=== PATIENT | male | born 1955 | race Two or more races ===

== ENCOUNTER 2025-01-04 16:08 | Emergency (ER) | payer MEDICARE, MEDICAID, SELFPAY ==
[2025-01-04 16:09] VITALS: BMI 33.6
[2025-01-04 16:43] VITALS: BP 149/58; PULSE 62; RESP 18; TEMP 36.9; O2SAT 99
--- NOTE | 2025-01-04 16:49 | XR_ITS ---
Examination: Venous duplex lower extremity sonogram, bilateral. Date and time of exam: January 04, 2025 1809 hours INDICATIONS: Bilateral leg swelling and pain beginning one month ago Technique: Multiple sonographic images of the deep venous system have been obtained. B-mode/2-D grayscale imaging of vascular structures and Doppler spectral analysis (waveforms) and color performed Both legs are examined. Findings: Deep venous systems do not demonstrate abnormal echogenicity. All visualized deep veins exhibit compressibility. All visualized deep veins exhibit augmentation. Impression: Negative for deep vein thrombosis
--- NOTE | 2025-01-04 16:50 | XR_ITS ---
Examination: PA chest single view TECHNIQUE: Upright PA chest single view Date and time: January 04, 2025 1658 hours Comparison November 13, 2021 INDICATIONS: Difficulty breathing today. FINDINGS: Normal heart size. Lungs are clear. The osseous structures are intact IMPRESSION: No active disease
--- NOTE | 2025-01-04 16:50 | PD.EDRME ---
Rapid Medical Screening Exam RME Arrival date/time: 01/04/25 16:08 69-year-old male presents the emergency department today patient reports history of cirrhosis reports this is not secondary to alcohol. Patient reports bilateral lower extremity swelling has been taking Lasix at home without relief Chief Complaint: General Adult/Misc Complain Time Seen by Provider: 01/04/25 16:11 Vital signs: Vital Signs Temperature 98.5 F 01/04/25 16:43 Pulse Rate 62 01/04/25 16:43 Respiratory Rate 18 01/04/25 16:43 Blood Pressure 149/58 H 01/04/25 16:43 Pulse Oximetry (%) 99 01/04/25 16:43 Oxygen Delivery Method Room Air 01/04/25 16:43
[2025-01-04 17:32] LABS: Basophils # (Auto) 0.1 Thou/mm3 (0.0-0.2); Basophils % (Auto) 1 % (0-2.5); Eosinophils # (Auto) 0.3 Thou/mm3 (0.0-0.5); Eosinophils % (Auto) 5 % (0-10); Hematocrit 31.6 % (41.0-53.0); Hemoglobin 11.3 g/dL (13.5-16.0); Immature Granulocytes % (Auto) 0 % (0-0); Immature Granulocytes Auto 0.01 Thou/mm3 (0.00-0.00); Lymphocytes # (Auto) 1.9 Thou/mm3 (1.0-4.8); Lymphocytes % (Auto) 29 % (10-50); Mean Corpuscular HGB Conc 35.8 g/dl (31.0-37.0); Mean Corpuscular Hemoglobin 34.6 pg (25.0-35.0); Mean Corpuscular Volume 97 fL (80-100); Monocytes # (Auto) 0.8 Thou/mm3 (0.0-0.8); Monocytes % (Auto) 12 % (0-12); Neutrophils # (Auto) 3.4 Thou/mm3 (1.8-7.7); Neutrophils % (Auto) 53 % (37-80); Nucleated Red Blood Cell % 0 /100 WBC (0); Platelet Count 98 Thou/mm3 (140-440); RDW Standard Deviation 58.2 fL (35.1-43.9); Red Blood Count 3.27 Miln/mm3 (4.50-5.90); White Blood Count 6.5 Thou/mm3 (3.8-10.6)
[2025-01-04 17:43] LABS: INR 1.4 (0.9-1.3); Partial Thromboplastin Time 30.8 Seconds (22.0-36.0); Prothrombin Time 14.5 Seconds (9.0-12.2)
[2025-01-04 17:44] LABS: B-Type Natriuretic Peptide 190 pg/mL (0-100)
[2025-01-04 17:46] LABS: Alanine Aminotransferase 37 U/L (10-49); Albumin/Globulin Ratio 0.8 (1.2-2.2); Alkaline Phosphatase 203 U/L (46-116); Anion Gap 8 (7-16); Aspartate Amino Transferase 62 U/L (0-34); BUN/Creatinine Ratio 14 Ratio (12-20); Bilirubin,Total 3.2 mg/dL (0.3-1.2); Blood Urea Nitrogen 11 mg/dL (9-23); Calcium 8.1 mg/dL (8.3-10.6); Calcium (Corrected) 8.9 mg/dL (8.5-10.1); Carbon Dioxide 27.2 mMol/L (20.0-31.0); Chloride 106 mMol/L (98-107); Creatinine (Component) 0.8 mg/dL (0.6-1.3); Estimated Creatinine Clearance 90.1 mL/min (>60); Globulin 3.7 gm/dL (2.3-3.5); Glucose 85 mg/dL (74-106); Osmolality,Calculated 279 (275-295); Potassium 4.1 mMol/L (3.4-5.1); Sodium 141 mMol/L (136-145); Total Protein 6.7 gm/dL (5.7-8.2); eGFR > 60 See Note
[2025-01-04 19:50] VITALS: BP 157/87; PULSE 57
[2025-01-04] MEDS: BUMETANIDE INJ 0.25 MG/ML VIAL 4 ML 1 MG IVP (19:50)
[2025-01-04 19:55] VITALS: BP 157/87; PULSE 61; RESP 25; TEMP 36.8; O2SAT 100
--- NOTE | 2025-01-04 20:12 | EDNOTE_ITS ---
ED General RME/HPI General Chief complaint: General Adult/Misc Complain Stated complaint: SWELLING FROM ABD DOWN Time Seen by Provider: 01/04/25 16:11 Arrival date/time: 01/04/25 16:08 CC: Lower leg edema HPI 5 weeks with progressive increase in severity, also states having mildly distended abdomen. Patient is seen by primary care provider who is now put him on 100 of Lasix which is not providing relief. Patient denies shortness of breath difficulty breathing back pain nausea vomiting or diarrhea. RME / HPI RME / HPI narrative: 01/04/25 16:08 69-year-old male presents the emergency department today patient reports history of cirrhosis reports this is not secondary to alcohol. Patient reports bilateral lower extremity swelling has been taking Lasix at home without relief Related Data Home Medications ?Medication ?Instructions ?Recorded ?Confirmed Multivitamins * (CENTRUM *) 1 tab PO QDAY ##0 10/25/14 Vitamin B Complex (Super B Complex) tab/day PO QDAY ## 0 10/25/14 cholecalciferol (vitamin D3) 25 1,000 unit PO QDAY #0 tabs 10/25/14 mcg (1,000 unit) capsule (Vitamin D3) doxazosin 4 mg tablet,extended 1 mg PO QDAY #0 tabs release 24 hr (Cardura XL) lisinopril 10 mg tablet 10 mg PO QDAY #0 tabs ascorbic acid (vitamin C) 500 mg 500 mg PO BID 8 03/19/18 tablet (Vitamin C) doxazosin 2 mg tablet (Cardura) 2 mg PO QDAY 03/19/18 03/19/18 glucosamine HCl 1,500 mg tablet 1 tab PO QDAY 03/19/18 03/19/18 levothyroxine 75 mcg capsule 75 mcg PO QDAY 03/19/18 0 03/19/18 nadolol 20 mg tablet 20 tab PO QDAY 03/19/1810/05 rifaximin 550 mg tablet (Xifaxan) 1 tab PO QDAY 03/19/18 Allergies Allergy/AdvReac Type Severity Reaction Status Date / Time No Known Allergies Allergy Verified 01/04/25 16:09 Review of Systems Review of Systems Narrative Review of Systems: GEN: No fever, no chills, no weight loss EYES: No discharge, no visual changes, no pain HEENT: No ear pain, no congestion, no sore throat PULM: No shortness of breath, no cough, no congestion CV: No chest pain, no dyspnea on exertion, no palpitations GI: No nausea, no vomiting, no diarrhea, no pain, no constipation : No frequency, no urgency, no dysuria MUSC/SKEL: No joint pain, no back pain, + lower extremity edema SKIN: No rash PSYCH: No hallucinations, no depression HEME/LYMPH: No easy bleeding or bruising tendencies NEURO: No weakness, no headache Past Medical History Past Medical History NEUROLOGIC: Negative Neurological Disorders or Seizures CARDIAC: Positive Cardiac Disorders and Hypertension; Negative Congestive Heart Failure RESPIRATORY: Positive Sleep Apnea; Negative Chronic Obstructive Pulmonary Disease (COPD) GASTROINTESTINAL: Positive Gastrointestinal Disorders, Hepatitis, Cirrhosis, Hemorrhoids, Gastroesophageal Reflux Disease and Obesity GENITOURINARY: Negative Genitourinary Disorders or Renal Disease MUSCULOSKELETAL: Positive Musculoskeletal Disorders ENT: Positive Deafness ENDOCRINE: Positive Endocrine Disorders and Hypothyroidism; Negative Diabetes Mellitus Type 1 or Diabetes Mellitus Type 2 HEMATOLOGIC: Negative Blood Disorders PSYCHO/SOCIAL: Positive Depression OTHER HISTORY: Positive Chicken Pox and Mumps; Negative Blood Transfusions, Anesthesia Reactions or MRSA Family History FAMILY HISTORY: Positive Family Cardiac Disorders and Family Cancer Social History SMOKING STATUS: Never smoker ED Exam Narrative Physical exam: [General: Obese not in any acute distress Head normocephalic HEENT: Within acceptable limits Neck is supple nontender Chest equal chest rise nontender to palpation Respiratory: Clear to auscultation no wheezes crackles or rubs CV: Rate rhythm is regular no murmurs rubs or clicks Abdomen is distended secondary to body habitus soft nontender no masses positive bowel sounds all 4 quadrants Back: No CVA tenderness no spinous process tenderness from cervical spine thoracic and lumbar spine Skin: Intact no petechiae rash induration ulceration or crepitus Extremities: Moving all extremity against resistance cap refill less than 2 seconds neurosensory intact. 3+ pitting edema in both lower extremities that extends from just distal to the knee to the dorsum of the foot. Nontender to palpation. Neuro: Awake alert oriented x3 Glascow coma 15 no focal deficits] Course Quality Measures none Orders Category Date Time Status US venous doppler LE BI Stat Exams 01/04/25 16:49 Completed XR chest 1V portable Stat Exams 01/04/25 16:50 Completed BNP [B-Type Natriuretic Peptide] Stat Lab 01/04/25 16:57 Completed CBC Stat Lab 01/04/25 16:57 Completed Comprehensive Metabolic Panel Stat Lab 01/04/25 16:57 Completed Partial Thromboplastin Time Stat Lab 01/04/25 16:57 Completed Prothrombin Time with INR Stat Lab 01/04/25 16:57 Completed Bumetanide Inj [Bumex Inj] Med 01/04/25 19:30 Discontinued 1 mg IVP X1 ONE Vital Signs Vital signs: Vital Signs Temperature 98.5 F 01/04/25 16:43 Pulse Rate 62 01/04/25 16:43 Respiratory Rate 18 01/04/25 16:43 Blood Pressure 149/58 H 01/04/25 16:43 Pulse Oximetry (%) 99 01/04/25 16:43 Oxygen Delivery Method Room Air 01/04/25 16:43 Discharge Plan Plan Patient Disposition: HOME (Self Care) Patient condition on transfer: Stable Prescriptions/Referrals Prescriptions/Med Rec: No Action lisinopril 10 MG tablet 10 mg PO QDAY Qty: 0 doxazosin [Cardura XL] 4 MG/BOTTLE tablet extended release 24 hr 1 mg PO QDAY Qty: 0 cholecalciferol (vitamin D3) [Vitamin D3] 1,000 UNIT tablet 1,000 unit PO QDAY Qty: 0 Multivitamins * (CENTRUM *) 1 EACH tablet 1 tab PO QDAY Qty: 0 Vitamin B Complex (Super B Complex) 1 TAB tablet PO QDAY Qty: 0 nadolol 20 mg Tablet 20 tab PO QDAY ascorbic acid (vitamin C) [Vitamin C] 500 mg Tablet 500 mg PO BID doxazosin [Cardura] 2 mg Tablet 2 mg PO QDAY glucosamine HCl 1,500 mg Tablet 1 tab PO QDAY levothyroxine 75 mcg Capsule 75 mcg PO QDAY rifaximin [Xifaxan] 550 mg Tablet 1 tab PO QDAY Referrals: Teja Love MD [Physician] - In 1 week No Primary/Family,Physician [Primary Care Provider] - In 1 week Problem List Clinical Impression: Bilateral edema of lower extremity Patient/Caregiver Discharge Instructions Education Materials: ED Leg Swelling in Both Legs Additional Instructions: Follow-up with your primary care provider if there is a worsening of symptoms return the emergency room medially for further evaluation. You do not have any clots in your legs. Continue to take the furosemide. Print Language: South African Stand Alone Forms: [place] Award Info., Patient Portal Info Letter PA/TERRITORY SALES REPRESENTATIVE Supervising Physician KERI/ANNE Supervising Physician: Cameron Cuello ENP MDM Clinical Information Provided by patient Medical Records Reviewed [facility] Meds/Rx Considered, not Ordered None Labs/Rad/Tests considered, not Ordered None Chronic Illness/Social Conditions Add or document further as needed: Hypertension hypothyroidism EKG EKG not done Lab Interpretation Labs: interpreted by me Lab(s) interpretation(s): CBC shows no leukocytosis H&H of 11.3 and 31.6 respectively PT platelet count of 98. Coag show PT 14.5 INR 1.4 PTT 30.8. CMP shows no significant electrolyte imbalances no renal impairment AST 62 ALT 237 alk phos of 206 total bili has increased to 3.2. Imaging Imaging interpretation: interpreted by me Provider imaging interpretation(s): Chest x-ray is negative for any acute finding Ultrasound of the lower extremities is negative for DVT. Medication Administration(s) none Medication Administration History Discontinued Medications Bumetanide (Bumetanide Inj 0.25 Mg/Ml Vial 4 Ml) 1 mg IVP X1 ONE Stop: 01/04/25 19:31 Last Admin: 01/04/25 19:50 Dose: 1 mg Documented By: SAVANNAH Diagnosis Differential diagnosis: DVT, CHF, dependent lower extremity edema Dispositon Disposition: Discharge Home
[2025-01-04 20:28] VITALS: BP 148/64; PULSE 58; RESP 15; TEMP 37; O2SAT 98
== END 2025-01-04 20:29 | disposition home or self-care (01) ==
PROVIDERS: Nurse Practitioner Primary Care; Emergency Provider Emergency Medicine
DX: R60.0 Localized edema (principal); K74.60 Unspecified cirrhosis of liver
CPT/HCPCS: 36415; 71045; 80053; 83880; 85025; 85610; 85730; 93970; 96374; 99284; J3490

== ENCOUNTER 2025-01-27 17:25 | Emergency (ER) | payer MEDICARE, MEDICAID, SELFPAY ==
[2025-01-27 17:26] VITALS: BMI 28.3
[2025-01-27 18:08] VITALS: BP 157/80; PULSE 77; RESP 18; TEMP 36.6; O2SAT 99
--- NOTE | 2025-01-27 18:09 | PC.NURSE ---
called pt back, no answer at this time
--- NOTE | 2025-01-27 18:26 | PD.EDRME ---
Rapid Medical Screening Exam RME Arrival date/time: 01/27/25 17:25 69M with history of non-alcoholic cirrhosis, HTN, and hypothyroidism presents to ED after being sent by PCP for K of 2.5. Patient states he has chronic diarrhea of unknown etiology, but denies N/V. Patient also states he had a syncopal episode last Friday, fell and hit his L shoulder. Patient has also had a cough. Patient had an unremarkable colonoscopy back in 2021. Chief Complaint: General Adult/Misc Complain Vital signs: Vital Signs Temperature 98 F 01/27/25 18:08 Pulse Rate 77 01/27/25 18:08 Respiratory Rate 18 01/27/25 18:08 Blood Pressure 157/80 H 01/27/25 18:08 Pulse Oximetry (%) 99 01/27/25 18:08 Oxygen Delivery Method Room Air 01/27/25 18:08
--- NOTE | 2025-01-27 18:28 | XR_ITS ---
Examination: PA lateral chest 2 views TECHNIQUE: Upright PA and lateral chest 2 views Date and time: January 27, 2025 1839 hours Indications coughing chest pain radiating one week ago FINDINGS: Mild accentuation of basilar bronchovascular markings. Normal heart size No lobar pneumonia Fracture left fourth rib in the midaxillary line not visualized on the knee 22,025 exam IMPRESSION: Recommend left rib series to exclude acute left rib fractures as clinically warranted
--- NOTE | 2025-01-27 18:28 | XR_ITS ---
Examination: Shoulder,left, 3 views Technique: Shoulder AP internal rotation, AP external rotation, Y view shoulder, 3 views Exam date and time :January 27, 2025 1842 hours INDICATIONS: Patient fell 5 days ago with injury to the shoulder, shoulder pain. FINDINGS: Acute-appearing fractures left third, fourth, fifth ribs No pneumothorax Humerus scapula appear intact IMPRESSION: Acute fractures left third, fourth, fifth ribs with mild offset No pneumothorax
[2025-01-27 19:11] LABS: Lactate (Lactic Acid) 1.7 mMol/L (0.4-2.0)
[2025-01-27 19:18] LABS: Basophils # (Auto) 0.1 Thou/mm3 (0.0-0.2); Basophils % (Auto) 1 % (0-2.5); Eosinophils # (Auto) 0.7 Thou/mm3 (0.0-0.5); Eosinophils % (Auto) 8 % (0-10); Hematocrit 33.1 % (41.0-53.0); Hemoglobin 12.4 g/dL (13.5-16.0); Immature Granulocytes % (Auto) 0 % (0-0); Immature Granulocytes Auto 0.03 Thou/mm3 (0.00-0.00); Lymphocytes # (Auto) 2.8 Thou/mm3 (1.0-4.8); Lymphocytes % (Auto) 35 % (10-50); Mean Corpuscular HGB Conc 37.5 g/dl (31.0-37.0); Mean Corpuscular Hemoglobin 35.1 pg (25.0-35.0); Mean Corpuscular Volume 94 fL (80-100); Monocytes % (Auto) 12 % (0-12); Neutrophils # (Auto) 3.6 Thou/mm3 (1.8-7.7); Neutrophils % (Auto) 44 % (37-80); Nucleated Red Blood Cell % 0 /100 WBC (0); Platelet Count 83 Thou/mm3 (140-440); RDW Standard Deviation 53.1 fL (35.1-43.9); Red Blood Count 3.53 Miln/mm3 (4.50-5.90); White Blood Count 8.1 Thou/mm3 (3.8-10.6)
[2025-01-27 19:26] LABS: Collection Type, Urine Clean Catch; Squamous Epithelial Cell,Urine 0 /hpf (0-5)
[2025-01-27 19:29] LABS: INR 1.3 (0.9-1.3); Partial Thromboplastin Time 29.9 Seconds (22.0-36.0); Prothrombin Time 13.6 Seconds (9.0-12.2)
[2025-01-27 19:38] LABS: Amphetamine/Methamp Scrn,U Negative (Negative); Barbiturate Screen,Urine Negative (Negative); Benzodiazepines Screen,Urine Negative (Negative); Benzoylecgonine Screen, Ur Negative (Negative); Fentanyl Screen,Urine Negative (Negative); Opiate Screen,Urine Negative (Negative); THC Screen,Urine Negative (Negative)
[2025-01-27 19:42] LABS: Bacteria,Urine Rare; Bilirubin,Urine Negative (Negative); Blood,Urine Negative (Negative); Clarity,Urine Clear (Clear/Hazy); Color,Urine Yellow (Lt Yel-Yel); Culture Indicated,Urine Not Indicated; Glucose, Urine Negative (Negative); Ketones,Urine Negative (Negative); Leukocyte Esterase,Urine Negative (Negative); Nitrite,Urine Negative (Negative); PH,Urine 6.5 (5.0-7.0); Protein,Urine Trace (Neg - Trace); RBC,Urine 7 /hpf (0-3); Specific Gravity,Urine 1.025 (1.001-1.035); WBC,Urine 1 /hpf (0-5)
[2025-01-27 19:57] LABS: Alanine Aminotransferase 50 U/L (10-49); Albumin/Globulin Ratio 0.8 (1.2-2.2); Alcohol, Blood Medical < 3.0 mg/dL (0-10.0); Alkaline Phosphatase 187 U/L (46-116); Anion Gap 9 (7-16); Aspartate Amino Transferase 88 U/L (0-34); BUN/Creatinine Ratio 16 Ratio (12-20); Bilirubin,Total 3.1 mg/dL (0.3-1.2); Blood Urea Nitrogen 14 mg/dL (9-23); Calcium 8.1 mg/dL (8.3-10.6); Calcium (Corrected) 8.9 mg/dL (8.5-10.1); Carbon Dioxide 31.9 mMol/L (20.0-31.0); Chloride 97 mMol/L (98-107); Creatinine (Component) 0.9 mg/dL (0.6-1.3); Estimated Creatinine Clearance 73.7 mL/min (>60); Globulin 3.6 gm/dL (2.3-3.5); Glucose 73 mg/dL (74-106); Magnesium 1.6 mg/dL (1.6-2.6); Osmolality,Calculated 275 (275-295); Potassium 3.1 mMol/L (3.4-5.1); Procalcitonin 0.13 ng/ml (0.0-0.49); Sodium 138 mMol/L (136-145); Total Protein 6.6 gm/dL (5.7-8.2); Troponin I < 0.020 ng/mL (0.0-0.045); eGFR > 60 See Note
[2025-01-27 20:02] VITALS: BP 138/56; PULSE 62; RESP 16; O2SAT 100
--- NOTE | 2025-01-27 20:06 | PD.EDRECHK ---
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 Patient states he has chronic diarrhea of unknown etiology, but denies N/V. Patient also states he had a syncopal episode last Friday, fell and hit his L shoulder. Patient has also had a cough. Patient had an unremarkable colonoscopy back in 2021. --------- Dr. Morfin?s Main ED Evaluation: 69yo male with a history of cirrhosis, HTN presents to the ED for a chief complaint of low potassium. Patient states he had outpatient labs done by his PCP 2 days ago and received a call today, stating his Potassium was low at 2.5, so he came in for evaluation. Patient subsequently complains of left upper chest area pain after he had passed out on Friday. Patient denies any dizziness, vision changes, neck pain, abdominal pain or any other associated symptoms. NKA. Patient states he got a new prescription for spironolactone that is pending pickup at the pharmacy. Related Data Home Medications ?Medication ?Instructions ?Recorded ?Confirmed Multivitamins * (CENTRUM *) 1 tab PO QDAY ##0 10/25/14 Vitamin B Complex (Super B Complex) tab/day PO QDAY ##0 10/25/14 cholecalciferol (vitamin D3) 25 1,000 unit PO QDAY #0 tabs 10/25/14 mcg (1,000 unit) capsule (Vitamin D3) doxazosin 4 mg tablet,extended 1 mg PO QDAY #0 tabs 10/25/14 release 24 hr (Cardura XL) lisinopril 10 mg tablet 10 mg PO QDAY #0 tabs 10/25/14 ascorbic acid (vitamin C) 500 mg 500 mg PO BID 03/19/18 03/19/18 tablet (Vitamin C) doxazosin 2 mg tablet (Cardura) 2 mg PO QDAY 03/19/18 03/19/18 glucosamine HCl 1,500 mg tablet 1 tab PO QDAY 03/19/18 03/19/18 levothyroxine 75 mcg capsule 75 mcg PO QDAY 03/19/18 03/19/18 nadolol 20 mg tablet 20 tab PO QDAY 03/19/18 03/19/18 rifaximin 550 mg tablet (Xifaxan) 1 tab PO QDAY 03/19/18 03/19/18 Previous Rx's ?Medication ?Instructions ?Recorded hydrocodone 5 mg-acetaminophen 325 1 tab PO Q6H PRN pain #14 tabs 01/27/25 mg tablet Allergies Allergy/AdvReac Type Severity Reaction Status Date / Time No Known Allergies Allergy Verified 01/27/25 17:29 Review of Systems Review of Systems Systems Reviewed: All systems reviewed, normal except as documented Past Medical History Past Medical History NEUROLOGIC: Negative Neurological Disorders or Seizures CARDIAC: Positive Cardiac Disorders and Hypertension; Negative Congestive Heart Failure RESPIRATORY: Positive Sleep Apnea; Negative Chronic Obstructive Pulmonary Disease (COPD) GASTROINTESTINAL: Positive Gastrointestinal Disorders, Hepatitis, Cirrhosis, Hemorrhoids, Gastroesophageal Reflux Disease and Obesity GENITOURINARY: Negative Genitourinary Disorders or Renal Disease MUSCULOSKELETAL: Positive Musculoskeletal Disorders ENT: Positive Deafness ENDOCRINE: Positive Endocrine Disorders and Hypothyroidism; Negative Diabetes Mellitus Type 1 or Diabetes Mellitus Type 2 HEMATOLOGIC: Negative Blood Disorders PSYCHO/SOCIAL: Positive Depression OTHER HISTORY: Positive Chicken Pox and Mumps; Negative Blood Transfusions, Anesthesia Reactions or MRSA Family History FAMILY HISTORY: Positive Family Cardiac Disorders and Family Cancer Social History SMOKING STATUS: Never smoker ED Exam Narrative Physical exam: GENERAL APPEARANCE: alert and oriented x 4, well-developed, well-nourished, no acute distress VITALS: All vitals were reviewed and the pulse ox is 100% on room air, which is normal according to my interpretation. HEENT: Normocephalic, atraumatic; pupils equal, round, reactive to light; EOMI; mucous membranes pink, moist; oropharynx clear NECK: Supple LUNGS: CTABL; no wheezes, no rales, no rhonchi HEART: Regular rate, regular rhythm; normal S1, S2; no murmurs CHEST: left lateral upper chest tenderness ABDOMEN: non distended; normal BS; soft, no tenderness, no guarding, no rebound; no masses, no organomegaly, no hernia BACK: no CVA tenderness EXTREMITIES: atraumatic; no edema NEUROLOGIC: awake; alert and oriented x4; cranial nerves II-XII grossly intact; no focal sensory or motor deficits PSYCHIATRIC: appropriate mood and affect SKIN: warm, dry, normal color; no rashes Course Course Course Narrative: CXR is ordered for determining the etiology of chest pain. Quality Measures none Orders Category Date Time Status EKG (ED ONLY) *Do not use* NOW Care 01/27/25 18:29 Completed Fingerstick [Bedside Blood Glucose] NOW Care 01/27/25 20:44 Completed EKG (ED Only) Stat Exams 01/27/25 18:29 Ordered XR chest 2V Stat Exams 01/27/25 18:28 Completed XR shoulder LT min 2V Stat Exams 01/27/25 18:28 Completed Alcohol, Blood Medical Stat Lab 01/27/25 19:00 Completed CBC Stat Lab 01/27/25 19:00 Completed CMP [Comprehensive Metabolic Panel] Stat Lab 01/27/25 19:00 Completed Drug Screen,Urine Stat Lab 01/27/25 19:18 Completed INR [Prothrombin Time with INR] Stat Lab 01/27/25 19:00 Completed Lactate (Lactic Acid) Stat Lab 01/27/25 19:00 Completed Mag [Magnesium] Stat Lab 01/27/25 19:00 Completed PTT [Partial Thromboplastin Time] Stat Lab 01/27/25 19:00 Completed Procalcitonin Stat Lab 01/27/25 19:00 Completed Troponin I Stat Lab 01/27/25 19:00 Completed Urinalysis, C/S if Indicated Stat Lab 01/27/25 19:18 Completed HYDROcodone*/APAP 5/325 [[place] 5/325] Med 01/27/25 20:48 Discontinued 1 tab PO X1 ONE KCL 10% Liq UDC 15 ML Med 01/27/25 20:07 Discontinued 40 meq PO X1 ONE Magnesium Oxide [Mag-Ox 400] Med 01/27/25 20:08 Discontinued 400 mg PO X1 ONE Vital Signs Vital signs: Vital Signs Temperature 98 F 01/27/25 18:08 Pulse Rate 77 01/27/25 18:08 Respiratory Rate 18 01/27/25 18:08 Blood Pressure 157/80 H 01/27/25 18:08 Pulse Oximetry (%) 99 01/27/25 18:08 Oxygen Delivery Method Room Air 01/27/25 18:08 Recheck / Abnormal Lab / Rx MDM Narrative MDM Narrative:: Scribe Attestation: 01/27/25 Olivia Nunes am scribing for and in the presence of Dr. Morfin. 2045: Patient's repeat blood sugar is 120. Patient is stable to be discharged home. Patient data External records reviewed:: [facility] previous records (Per chart review, patient was seen here on 01/04/25 for bilateral edema of lower extremity.) Clinical information provided by:: patient Social determinants that could affect healthcare access:: none Patient has the following chronic illnesses:: HTN, Hepatitis How is presenting disease/condition affected by chronic disease/condition?: uneffected by Evaluation data The following diagnostics were reviewed and interpreted by me:: lab results, radiology exam(s) and EKG tracing(s) Lab and/or radiology exams considered but not ordered:: none Interpretation Summary: CBC normal, Potassium 3.1, Lactic Acid normal, Magnesium 1.6, Total Bilirubin 3.1 (which is chronic), LFTs are elevated (which is chronic), Troponin normal, Glucose 73, Procalcitonin normal, UA unremarkable, UDS negative, Blood Alcohol negative. EKG done at 1828, NSR, rate of 60, first degree AV block, no acute ST or T wave changes, no STEMI, according to my interpretation. ------ [facility] Report Signed Patient: RAKEL CISNEROS. Record#: [id number] Birthdate: 1955 Age/Sex: 69 / M Location: [facility] Attending Dr: Ordering Physician: Jenaro Huertas PA-C Date of Service: 01/27/25 Procedure(s): XR chest 2V Accession Number(s): [id number] cc: John Hawkins MD; NO PRIMARY/FAMILY,PHYSICIAN; Jenaro Huertas PA-C~ Examination: PA lateral chest 2 views TECHNIQUE: Upright PA and lateral chest 2 views Date and time: January 27, 2025 1839 hours Indications coughing chest pain radiating one week ago FINDINGS: Mild accentuation of basilar bronchovascular markings. Normal heart size No lobar pneumonia Fracture left fourth rib in the midaxillary line not visualized on the knee 22,025 exam IMPRESSION: Recommend left rib series to exclude acute left rib fractures as clinically warranted Dictated By: John Hawkins MD Signed By: <Electronically signed by John Hawkins MD in [place]> 06/12/25 1854 [facility] Signed Patient: RAKEL CISNEROS Record#: [id number] Birthdate: 1955 Age/Sex: 69 / M [facility] Attending Dr: Ordering Physician: Jenaro Huertas PA-C Date of Service: 01/27/25 Procedure(s): XR shoulder LT min 2V Accession Number(s): [id number] cc: John Hawkins MD; NO PRIMARY/FAMILY,PHYSICIAN; Jenaro Huertas PA-C~ Examination: Shoulder,left, 3 views Technique: Shoulder AP internal rotation, AP external rotation, Y view shoulder, 3 views Exam date and time :January 27, 2025 1842 hours INDICATIONS: Patient fell 5 days ago with injury to the shoulder, shoulder pain. FINDINGS: Acute-appearing fractures left third, fourth, fifth ribs No pneumothorax Humerus scapula appear intact IMPRESSION: Acute fractures left third, fourth, fifth ribs with mild offset No pneumothorax Dictated By: John Hawkins MD Signed By: <Electronically signed by John Hawkins MD in [place] Medications / Prescriptions Medications or Prescriptions considered but not ordered:: none Medication administrations:: Medication Administration History Discontinued Medications Hydrocodone Bitart/Acetaminophen (Hydrocodone/Apap 5/325 Tablet) 1 tab PO X1 ONE Stop: 01/27/25 20:49 Last Admin: 01/27/25 21:00 Dose: 1 tab Documented By: CVL Magnesium Oxide (Magnesium Oxide 400 Mg Tablet) 400 mg PO X1 ONE Stop: 01/27/25 20:09 Last Admin: 01/27/25 20:31 Dose: 400 mg Documented By: EF Potassium Chloride (Potassium Chloride 10% 20 Meq/15 Ml Udc) 40 meq PO X1 ONE Stop: 01/27/25 20:08 Last Admin: 01/27/25 20:31 Dose: 40 meq Documented By: EF see above Consultations Consultation(s) initiated? (list below): No Diagnosis Recheck Differential Diagnosis: other (hypokalemia, other electrolyte abnormality, shoulder fx, shoulder dislocation, rib fx) Most likely diagnosis given after review of the tests above:: see clinical impression below Admission Indicated Admission indicated?: not indicated Explain why admission is indicated or not indicated:: Patient is stable to be managed on an outpatient basis. Admission Request Was there a request for admission?: No Disposition Plan Disposition Plan: Discharge Discharge Attestation Discharge Attestation: The patient and all family members were given an opportunity to ask questions and understood the discharge instructions. Discharge instructions specifically effects, indications for sooner follow up or return to the emergency department, and the expected course of current diagnosis. Patient condition: Stable Discharge Plan Plan Patient Disposition: HOME (Self Care) Prescriptions/Referrals Prescriptions/Med Rec: New hydrocodone-acetaminophen 5-325 mg tablet 1 tab PO Q6H MDD 9 PRN (Reason: pain) Qty: 14 0RF No Action lisinopril 10 MG tablet 10 mg PO QDAY Qty: 0 doxazosin [Cardura XL] 4 MG/BOTTLE tablet extended release 24 hr 1 mg PO QDAY Qty: 0 cholecalciferol (vitamin D3) [Vitamin D3] 1,000 UNIT tablet 1,000 unit PO QDAY Qty: 0 Multivitamins * (CENTRUM *) 1 EACH tablet 1 tab PO QDAY Qty: 0 Vitamin B Complex (Super B Complex) 1 TAB tablet PO QDAY Qty: 0 nadolol 20 mg Tablet 20 tab PO QDAY ascorbic acid (vitamin C) [Vitamin C] 500 mg Tablet 500 mg PO BID doxazosin [Cardura] 2 mg Tablet 2 mg PO QDAY glucosamine HCl 1,500 mg Tablet 1 tab PO QDAY levothyroxine 75 mcg Capsule 75 mcg PO QDAY rifaximin [Xifaxan] 550 mg Tablet 1 tab PO QDAY Referrals: No Primary/Family,Physician [Primary Care Provider] - In 1 week Problem List Clinical Impression: Hypokalemia, Fall, Multiple rib fractures, Left rib fracture Patient/Caregiver Discharge Instructions Education Materials: Preventing Falls Make Your ..., ED Rib Fracture, ED Hypokalemia Additional Instructions: Decrease Lasix (furosemide) from twice daily to once daily. Start spirinolactone as prescribed by your doctor. Follow up with your doctor for recheck. Print Language: Finnish Stand Alone Forms: [place] Award Info., Patient Portal Info Letter
[2025-01-27] MEDS: MAGNESIUM OXIDE 400 MG TABLET PO (20:31)
[2025-01-27] MEDS: POTASSIUM CHLORIDE 10% 20 MEQ/15 ML UDC 40 MEQ PO (20:31)
[2025-01-27] MEDS: HYDROcodone/APAP 5/325 TABLET 1 TAB PO (21:00)
[2025-01-27 21:12] VITALS: RESP 18
== END 2025-01-27 21:13 | disposition home or self-care (01) ==
PROVIDERS: Physician Assistant; Emergency Provider Emergency Medicine
DX: E87.6 Hypokalemia (principal); S22.42XA Multiple fractures of ribs, left side, initial encounter for closed fracture; W19.XXXA Unspecified fall, initial encounter; K74.60 Unspecified cirrhosis of liver; I10 Essential (primary) hypertension; E03.9 Hypothyroidism, unspecified; M25.512 Pain in left shoulder
CPT/HCPCS: 36415; 71046; 73030; 80053; 80307; 80320; 81001; 83605; 83690; 83735; 84145; 84484; 85025; 85610; 85730; 93005; 99283; A9270; G0480

== ENCOUNTER → 2025-04-12 | Outpatient (CLI) | payer MEDICARE, MEDICAID, SELFPAY ==
--- NOTE | 2025-04-12 09:30 | XR_ITS ---
Examination: Breast ultrasound complete, bilateral Date and time of exam: April 12, 2025, 0935 hours INDICATIONS: Right breast retroareolar hardness and swelling 10 months left breast tenderness 5 months, family history breast cancer Technique: Real-time grayscale ultrasonographic imaging bilateral breasts, including all 4 quadrants as well as nipple retroareolar and axillary regions. Findings: Sonographic images right breast Increased echogenicity 4.1 x 2.0 x 4.7 cm in the retroareolar region right breast Increased echogenicity 2.2 x 1.1 x 2.6 cm in the retroareolar region left breast IMPRESSION: BI-RADS Category 0: Incomplete: Need additional imaging evaluation Recommend bilateral mammography follow-up to assess retroareolar abnormalities
== END | disposition home or self-care (01) ==
PROVIDERS: PCP Physician Assistant; Referring Provider Physician Assistant; Visit Provider Physician Assistant
DX: R92.8 Other abnormal and inconclusive findings on diagnostic imaging of breast (principal); Z80.3 Family history of malignant neoplasm of breast
CPT/HCPCS: 76641

== ENCOUNTER → 2025-05-19 | Outpatient (CLI) | payer MEDICARE, MEDICAID, SELFPAY ==
--- NOTE | 2025-05-19 16:01 | XR_ITS ---
Examination: CT brain head without contrast. 2-D sagittal coronal reconstructions Date and time of exam:May 19, 2025, 1614 hours person November 13, 2021: Patient fell May 2024 with injury to the head, persistent head pain CTDI: vol (mGy):47.5 DLP: (mGycm):904 Technique: Multiple CT axial sections of the brain have been obtained, 5 mm slice thickness. Contrast has not been administered. 2-D sagittal, coronal reconstructions have been obtained Low dose protocols were performed. One or more of the following dose reduction techniques were used; automated exposure control, adjustment of the mA and/or KV according to patient size, use of iterative reconstruction technique. Findings: No significant ventricular enlargement. 3 mm right temporal calcification, small basal ganglia calcifications Intra-axial or extra-axial hemorrhage density is not seen. No mass effect or midline shift Basal cisterns are not remarkable. Fourth ventricle is midline. Cranial vault intact. Again noted large surgical defect left mastoid air cells, fluid in the mastoid air cells Impression: Negative for acute hemorrhage, mass effect or midline shift Bilateral otitis externa Acute left mastoiditis
== END | disposition home or self-care (01) ==
PROVIDERS: PCP Family Medicine; Referring Provider Family Medicine; Visit Provider Family Medicine
DX: H60.93 Unspecified otitis externa, bilateral (principal); H70.002 Acute mastoiditis without complications, left ear
CPT/HCPCS: 70450

== ENCOUNTER 2025-05-25 19:09 | Emergency (ER) | payer MEDICARE, MEDICAID, SELFPAY ==
[2025-05-25 19:10] VITALS: BMI 28.6
--- NOTE | 2025-05-25 19:13 | EKG_ITS ---
[facility] Test Date: 2025-05-25 Pat Name: RAKEL CISNEROS Department: Room: - Gender: Male [employer]: : 1955 Requested By: ED Temporary Provider Order Number: [id number] Reading MD: ED Temporary Provider Measurements Intervals [place] Rate: 58 P: 66 CO: 285 QRS: 61 QRSD: 84 T: 54 QT: 390 QTc: 383 Interpretive Statements SINUS BRADYCARDIA WITH FIRST DEGREE AV BLOCK No previous ECG available for comparison /store/S0/[id number].pdf
[2025-05-25 19:29] VITALS: BP 148/72; PULSE 57; RESP 15; TEMP 36.7; O2SAT 98
--- NOTE | 2025-05-25 19:47 | PD.EDADULT ---
ED General RME/HPI General Chief complaint: Headache Stated complaint: SENT BY SPECIALIST, WEAKNESS, HEADACHE, BRAIN FOG Time Seen by Provider: 05/25/25 19:41 Arrival date/time: 05/25/25 19:09 RME / HPI RME / HPI narrative: 69-year-old male patient with significant history of liver cirrhosis, hypertension, was sent to us by the liver specialist for hyponatremia. 2 days ago patient's sodium was noted to be 124 today it was 122. Patient is complaining of generalized weakness, headache, brain fog severity mild. Also complain worsening bilateral lower extremity weakness. Patient denies any fever denies any chest pain denies any neck pain denies any vomiting diarrhea or constipation. No medication was taken prior to ER visit. Related Data Home Medications ?Medication ?Instructions ?Recorded ?Confirmed Multivitamins * (CENTRUM *) 1 tab PO QDAY ##0 10/25/14 Vitamin B Complex (Super B Complex) tab/day PO QDAY ##0 10/25/14 cholecalciferol (vitamin D3) 25 1,000 unit PO QDAY #0 tabs 10/25/14 mcg (1,000 unit) capsule (Vitamin D3) doxazosin 4 mg tablet,extended 1 mg PO QDAY #0 tabs 10/25/14 release 24 hr (Cardura XL) lisinopril 10 mg tablet 10 mg PO QDAY #0 tabs 10/25/14 ascorbic acid (vitamin C) 500 mg 500 mg PO BID 03/19/18 03/19/18 tablet (Vitamin C) doxazosin 2 mg tablet (Cardura) 2 mg PO QDAY 03/19/18 03/19/18 glucosamine HCl 1,500 mg tablet 1 tab PO QDAY 03/19/18 03/19/18 levothyroxine 75 mcg capsule 75 mcg PO QDAY 03/19/18 03/19/18 nadolol 20 mg tablet 20 tab PO QDAY 03/19/18 03/19/18 rifaximin 550 mg tablet (Xifaxan) 1 tab PO QDAY 03/19/18 03/19/18 Previous Rx's ?Medication ?Instructions ?Recorded hydrocodone 5 mg-acetaminophen 325 1 tab PO Q6H PRN pain #14 tabs 01/27/25 mg tablet Allergies Allergy/AdvReac Type Severity Reaction Status Date / Time No Known Allergies Allergy Verified 05/25/25 19:12 Review of Systems Review of Systems Narrative Review of Systems: Review of system reviewed and within normal limits except mentioned in HPI ED Exam Narrative Physical exam: VITAL SIGNS: Reviewed. GENERAL APPEARANCE: Alert and interactive, follows commands, no acute distress, HEAD AND FACE: Non-traumatic. ENT: PERRL, pink conjunctivitis, eyelid no trauma, Mucous membrane moist. NECK: Supple, nontender, no nuchal rigidity. CHEST: No tenderness, no crepitus, no paradoxical movement, no retractions. LUNGS: Clear, well ventilated, symmetric, no rales, no wheezing, no ronchi, no stridor, good breath sounds bilaterally. HEART: Regular rate, regular rhythm, no murmur, no gallops. ABDOMEN: Soft, positive bowel sounds, nondistended, no guarding, nontender, no rebound, no masses, RECTAL: Deferred. GENITAL: Deferred. NEUROLOGICAL: Gross motor function intact sensory function intact, Appropriate for age. MUSCULOSKELETAL: low back nontender, full range of motion. EXTREMITIES: Bilateral lower extremity +2 edema, nontender, full range of motion. SKIN: Color pink, dry, no rash, no lacerations, no abrasions, no contusions. LYMPHATICS: Deferred. Course Quality Measures none Orders Category Date Time Status EKG (ED ONLY) *Do not use* NOW Care 05/25/25 19:13 Completed EKG (ED ONLY) *Do not use* NOW Care 05/25/25 19:42 Completed EKG (ED Only) Stat Exams 05/25/25 19:13 Draft EKG (ED Only) Stat Exams 05/25/25 19:42 Ordered B-Type Natriuretic Peptide Stat Lab 05/25/25 19:57 Completed CBC Stat Lab 05/25/25 19:57 Completed CK [Creatine Kinase] Stat Lab 05/25/25 19:57 Completed Comprehensive Metabolic Panel Stat Lab 05/25/25 19:57 Completed Free T4 (Free Thyroxine) Stat Lab 05/25/25 19:57 Completed Magnesium Stat Lab 05/25/25 19:57 Completed Osmolality, Serum* Stat Lab 05/25/25 21:58 Received Osmolality, Urine* Stat Lab 05/25/25 21:58 Received Partial Thromboplastin Time Stat Lab 05/25/25 19:57 Completed Sodium,Urine Random Stat Lab 05/25/25 21:58 Completed TSH [Thyroid Stimulating Hormone] Stat Lab 05/25/25 19:57 Completed Troponin I Stat Lab 05/25/25 19:57 Completed Urinalysis, C/S if Indicated Stat Lab 05/25/25 21:58 Completed Sodium Chloride 0.9% 1000 ml [Ns] 1,000 ml Med 05/25/25 20:48 Discontinued IV 999 mls/hr Vital Signs Vital signs: Vital Signs Temperature 98.1 F 05/25/25 19:29 Pulse Rate 57 L 05/25/25 19:29 Respiratory Rate 15 05/25/25 19:29 Blood Pressure 148/72 H 05/25/25 19:29 Pulse Oximetry (%) 98 05/25/25 19:29 Oxygen Delivery Method Room Air 05/25/25 19:29 Discharge Plan Plan Patient Disposition: HOME (Self Care) Discharge Disposition comment: Stable Prescriptions/Referrals Prescriptions/Med Rec: No Action lisinopril 10 MG tablet 10 mg PO QDAY Qty: 0 doxazosin [Cardura XL] 4 MG/BOTTLE tablet extended release 24 hr 1 mg PO QDAY Qty: 0 cholecalciferol (vitamin D3) [Vitamin D3] 1,000 UNIT tablet 1,000 unit PO QDAY Qty: 0 Multivitamins * (CENTRUM *) 1 EACH tablet 1 tab PO QDAY Qty: 0 Vitamin B Complex (Super B Complex) 1 TAB tablet PO QDAY Qty: 0 nadolol 20 mg Tablet 20 tab PO QDAY ascorbic acid (vitamin C) [Vitamin C] 500 mg Tablet 500 mg PO BID doxazosin [Cardura] 2 mg Tablet 2 mg PO QDAY glucosamine HCl 1,500 mg Tablet 1 tab PO QDAY levothyroxine 75 mcg Capsule 75 mcg PO QDAY rifaximin [Xifaxan] 550 mg Tablet 1 tab PO QDAY hydrocodone-acetaminophen 5-325 mg tablet 1 tab PO Q6H MDD 9 PRN (Reason: pain) Qty: 14 0RF Referrals: No Primary/Family,Physician [Primary Care Provider] - In 1 week Problem List Clinical Impression: Acute hyponatremia, History of cirrhosis of liver Patient/Caregiver Discharge Instructions Discharge Activity: activity as tolerated Education Materials: ED Hyponatremia Additional Instructions: Thank you for the opportunity for serving you today. You are stable for discharged . You are advised to: Follow-up with your PCP in 1 to 2 days Return to ED for worsening of symptoms Increase salt in your diet Follow-up with your PCP regarding adjustment of your thyroid medications Follow-up with your liver specialist in the morning Take 2 tablets of your Lasix as prescribed by your PCP Print Language: [place] Stand Alone Forms: [place] Award Info., Patient Portal Info Letter PA/ANNE Supervising Physician KEIR/ANNE Supervising Physician: MD Karen MDM Narrative MDM hospital course (for use when minimal MDM required): 69-year-old male patient with significant history of liver cirrhosis, hypertension, was sent to us by the liver specialist for hyponatremia. 2 days ago patient's sodium was noted to be 124 today it was 122. Patient is complaining of generalized weakness, headache, brain fog severity mild. Also complain worsening bilateral lower extremity weakness. Patient denies any fever denies any chest pain denies any neck pain denies any vomiting diarrhea or constipation. No medication was taken prior to ER visit. Patient's workup is significant for a sodium of 124. Chloride of 90. BUN 24 potassium is 4.4 patient's total bili 2.8, AST of 88, alkaline phos of 156 ALT of 73. Patient history of liver cirrhosis. Patient was given 1 L of IV NS. Patient was also advised to follow-up with liver specialist in the morning and with his PCP regarding adjustment of his thyroid medication. Currently patient states this was noted to be low and free T4 is elevated. he will probably need to increase her thyroid pills. Patient is asymptomatic prior to discharge. EKG Interpretation EKG #1: EKG Interpretation: EKG showed sinus bradycardia, ventricular rate of 58 bpm, no ST segment elevation or depression noted. Medication Administration(s) Medication Administration History Discontinued Medications Sodium Chloride (Ns) 1,000 mls @ 999 mls/hr IV .Q1H1M ONE Stop: 05/25/25 21:48 Last Admin: 05/25/25 21:59 Dose: 999 mls/hr Documented By: CHRIS
[2025-05-25 20:12] LABS: Basophils # (Auto) 0.1 Thou/mm3 (0.0-0.2); Basophils % (Auto) 1 % (0-2.5); Eosinophils # (Auto) 0.3 Thou/mm3 (0.0-0.5); Eosinophils % (Auto) 3 % (0-10); Hematocrit 34.6 % (41.0-53.0); Hemoglobin 12.7 g/dL (13.5-16.0); Immature Granulocytes Auto 0.04 Thou/mm3 (0.00-0.00); Lymphocytes # (Auto) 3.0 Thou/mm3 (1.0-4.8); Lymphocytes % (Auto) 34 % (10-50); Mean Corpuscular HGB Conc 36.7 g/dl (31.0-37.0); Mean Corpuscular Hemoglobin 35.2 pg (25.0-35.0); Mean Corpuscular Volume 96 fL (80-100); Monocytes # (Auto) 1.1 Thou/mm3 (0.0-0.8); Monocytes % (Auto) 12 % (0-12); Neutrophils # (Auto) 4.4 Thou/mm3 (1.8-7.7); Neutrophils % (Auto) 50 % (37-80); Nucleated Red Blood Cell # 0.00 Thou/mm3 (0.00-0.00); Nucleated Red Blood Cell % 0 /100 WBC (0); Platelet Count 104 Thou/mm3 (140-440); RDW Standard Deviation 46.7 fL (35.1-43.9); Red Blood Count 3.61 Miln/mm3 (4.50-5.90); White Blood Count 8.9 Thou/mm3 (3.8-10.6)
[2025-05-25 20:25] LABS: Partial Thromboplastin Time 31.0 Seconds (22.0-36.0)
[2025-05-25 20:36] LABS: B-Type Natriuretic Peptide 33 pg/mL (0-100)
[2025-05-25 20:41] LABS: Alanine Aminotransferase 73 U/L (10-49); Albumin, Serum 3.6 gm/dL (3.4-4.8); Albumin/Globulin Ratio 1.1 (1.2-2.2); Alkaline Phosphatase 156 U/L (46-116); Anion Gap 9 (7-16); Aspartate Amino Transferase 88 U/L (0-34); BUN/Creatinine Ratio 20 Ratio (12-20); Bilirubin,Total 2.8 mg/dL (0.3-1.2); Blood Urea Nitrogen 24 mg/dL (9-23); Calcium 9.4 mg/dL (8.3-10.6); Calcium (Corrected) 9.7 mg/dL (8.5-10.1); Carbon Dioxide 25.5 mMol/L (20.0-31.0); Chloride 90 mMol/L (98-107); Creatine Kinase 162 U/L (34-171); Creatinine (Component) 1.2 mg/dL (0.6-1.3); Estimated Creatinine Clearance 55.6 mL/min (>60); Free T4 (Free Thyroxine) 2.08 ng/dL (0.89-1.76); Globulin 3.4 gm/dL (2.3-3.5); Glucose 89 mg/dL (74-106); Magnesium 1.8 mg/dL (1.6-2.6); Osmolality,Calculated 252 (275-295); Potassium 4.4 mMol/L (3.4-5.1); Sodium 124 mMol/L (136-145); Thyroid Stimulating Hormone 0.03 uIU/mL (0.55-4.78); Total Protein 7.0 gm/dL (5.7-8.2); Troponin I < 0.020 ng/mL (0.0-0.045); eGFR > 60 See Note
[2025-05-25] MEDS: SODIUM CHLORIDE 0.9% 1000 ML 1,000 ML 999 ML IV (21:59)
[2025-05-25 22:07] LABS: Collection Type, Urine Clean Catch
[2025-05-25 22:20] LABS: Sodium,Urine Random < 15.0 mMol/L (20.0-110.0)
[2025-05-25 22:21] LABS: Bilirubin,Urine Negative (Negative); Blood,Urine Negative (Negative); Clarity,Urine Clear (Clear/Hazy); Color,Urine Yellow (Lt Yel-Yel); Culture Indicated,Urine Not Indicated; Glucose, Urine Negative (Negative); Ketones,Urine Negative (Negative); Leukocyte Esterase,Urine Negative (Negative); Nitrite,Urine Negative (Negative); PH,Urine 6.5 (5.0-7.0); Protein,Urine Negative (Neg - Trace); RBC,Urine 2 /hpf (0-3); Specific Gravity,Urine 1.019 (1.001-1.035); Squamous Epithelial Cell,Urine < 1 /hpf (0-5); Urobilinogen,Urine Negative mg/dL (0.0-1.0); WBC,Urine 1 /hpf (0-5)
[2025-05-25 23:16] VITALS: BP 135/85; PULSE 85; RESP 14; TEMP 37; O2SAT 99
[2025-05-31 06:48] LABS: Osmolality, Serum* 289 mOsm/kg (278-305); Osmolality, Urine* 544 mOsm/kg (50-1200)
== END 2025-05-25 23:16 | disposition home or self-care (01) ==
PROVIDERS: Nurse Practitioner Family; Emergency Provider Emergency Medicine
DX: E87.1 Hypo-osmolality and hyponatremia (principal); K74.60 Unspecified cirrhosis of liver; R00.1 Bradycardia, unspecified; I44.0 Atrioventricular block, first degree
CPT/HCPCS: 36415; 80053; 81001; 82550; 83735; 83880; 83930; 83935; 84300; 84439; 84443; 84481; 84484; 85025; 85730; 93005; 96360; 99284; J7030

== ENCOUNTER → 2025-05-25 | Outpatient (CLI) | payer MEDICARE, MEDICAID, SELFPAY ==
--- NOTE | 2025-05-25 08:45 | XR_ITS ---
Examination: Diagnostic digital mammography, bilateral Computer aided detection 3-D breast Tomosynthesis, bilateral Date and time of exam: May 25 0 25, 0857 hours INDICATIONS: Patient states bilateral palpable breast masses 7 months Technique: Nonmagnified MLO, CC views of the breasts to been obtained, reconstructed from 3-D Tomosynthesis images. R2 computer aided detection program utilized for evaluation of suspicious masses and/or abnormal calcifications. 3-D Tomosynthesis images obtained. Findings: The breasts are heterogeneously dense, which may obscure small masses More pronounced radiodensity on spot compression views in the retroareolar region right breast Increased radiodensity in the retroareolar region left breast Impression: BI-RADS Category 2: Probably benign findings Recommend follow-up 3-month bilateral breast sonography with a radiologist in attendance.
--- NOTE | 2025-05-25 08:46 | XR_ITS ---
EXAMINATION: PA lateral chest 2 views TECHNIQUE: Upright PA lateral chest 2 views Date and time: May,, 0923 hours INDICATIONS: Bilateral breast masses painful to touch this week FINDINGS: Normal heart size The lungs are clear. No mediastinal lymphadenopathy. Moderate osteopenia IMPRESSION: No active disease
== END | disposition home or self-care (01) ==
PROVIDERS: Referring Provider Family Medicine; Visit Provider Family Medicine
DX: R92.323 Mammographic fibroglandular density, bilateral breasts (principal); N64.4 Mastodynia
CPT/HCPCS: 71046; 77062; 77066; G0279